=== PATIENT | male | born 1960 ===

== ENCOUNTER 2020-07-23 23:21 | Outpatient (CLI) | payer OTHER | END 2020-07-23 23:22 | disposition home or self-care (01) | LOC: PPH VACUNA 23:21 | DX: Z23 Encounter for immunization (principal) ==

== ENCOUNTER 2021-02-05 09:05 | Outpatient (CLI) | payer OTHER | END 2021-02-05 09:10 | disposition home or self-care (01) | LOC: SONOGRAMA 09:05 | DX: K76.0 Fatty (change of) liver, not elsewhere classified (principal); R10.84 Generalized abdominal pain ==